=== PATIENT | male | born 1950 | race Caucasian/White ===

== ENCOUNTER 2023-04-01 11:58 | Inpatient (IN) | payer BC, OTHER ==
[2023-04-01 13:43] LABS: BASO % 0.5 % (0-2.0); EOS % 1.5 % (0-4.5); HEMATOCRIT 36.2 % (35.4-49); HEMOGLOBIN 12.4 GM/dL (11.7-16.9); LYMPH % 17.7 % (8-40); MCH 29.8 pg (25.7-33.7); MCHC 34.2 g/dl (32.0-35.9); MEAN CELL VOLUME 87.2 fl (80-96); MEAN PLT VOLUME 8.8 fl (7.5-11.1); MONO % 5.3 % (3.8-10.2); PLATELET COUNT 204 10^3/uL (134-434); RBC 4.14 M/mm3 (4.00-5.60); RDW 12.8 % (11.9-15.9); WHITE BLOOD COUNT 6.7 K/mm3 (4.0-10.0)
[2023-04-01 13:48] LABS: INR 1.1 (0.83-1.09); PROTHROMBIN TIME (PATIENT) 12.8 SEC (9.7-13.0)
[2023-04-01 13:51] LABS: ACTIVATED PTT 25.9 SECONDS (25.2-36.5)
[2023-04-01 14:04] LABS: POTASSIUM 4.1 mmol/L (3.5-5.1)
[2023-04-01 14:07] LABS: ALBUMIN 3.2 g/dl (3.4-5.0); BLOOD UREA NITROGEN 8.4 mg/dL (7-18); CALCIUM 9.1 mg/dL (8.5-10.1); MAGNESIUM 1.9 mg/dL (1.8-2.4)
[2023-04-01 14:10] LABS: CREATININE 0.8 mg/dL (0.55-1.3)
[2023-04-01 14:11] LABS: PHOSPHOROUS 3.2 mg/dL (2.5-4.9)
[2023-04-01 14:12] LABS: BILIRUBIN,TOTAL 0.3 mg/dL (0.2-1); TOT PROT 6.7 g/dl (6.4-8.2)
[2023-04-01 14:15] LABS: N-TERMINAL BNP 370.6 pg/ml (5-125)
[2023-04-01 15:14] LABS: PH,URINE 7.5 (5.0-8.0); URINE APPEARANCE CLEAR; URINE BILIRUBIN NEGATIVE (NEGATIVE); URINE COLOR YELLOW; URINE GLUCOSE (UA) NEGATIVE (NEGATIVE); URINE KETONE NEGATIVE (NEGATIVE); URINE LEUK ESTERASE NEGATIVE (NEGATIVE); URINE NITRITE NEGATIVE (NEGATIVE); URINE PROTEIN NEGATIVE (NEGATIVE)
[2023-04-01] MEDS: QUEtiapine FUMARATE 200 MG TABLET PO SCH (21:34)
[2023-04-01] MEDS: FLUoxetine HCL 20 MG CAPSULE PO SCH (21:34)
[2023-04-01] MEDS ORDERED: HALOPERIDOL 5 MG TABLET PO SCH (22:00)
[2023-04-01] MEDS: HALOPERIDOL 5 MG TABLET PO SCH (23:16)
[2023-04-02] MEDS: LEVOTHYROXINE 100 MCG, LEVOTHYROXINE 75 MCG PO SCH (07:20)
[2023-04-02 08:55] LABS: BASO % 0.3 % (0-2.0); EOS % 3.1 % (0-4.5); HEMATOCRIT 35.7 % (35.4-49); HEMOGLOBIN 12.2 GM/dL (11.7-16.9); LYMPH % 20.8 % (8-40); MCH 29.6 pg (25.7-33.7); MCHC 34.1 g/dl (32.0-35.9); MEAN CELL VOLUME 86.8 fl (80-96); MEAN PLT VOLUME 8.5 fl (7.5-11.1); MONO % 5.9 % (3.8-10.2); NEUT % 69.9 % (42.8-82.8); PLATELET COUNT 180 10^3/uL (134-434); RBC 4.11 M/mm3 (4.00-5.60); WHITE BLOOD COUNT 6.6 K/mm3 (4.0-10.0)
[2023-04-02 09:10] LABS: POTASSIUM 3.8 mmol/L (3.5-5.1)
[2023-04-02 09:14] LABS: CALCIUM 9.1 mg/dL (8.5-10.1)
[2023-04-02 09:15] LABS: BLOOD UREA NITROGEN 8.3 mg/dL (7-18)
[2023-04-02 09:18] LABS: CREATININE 0.6 mg/dL (0.55-1.3)
[2023-04-02] MEDS: HALOPERIDOL 5 MG TABLET PO SCH ×2 (09:28→22:49)
[2023-04-02] MEDS: ATENOLOL 50 MG TABLET (FP) PO SCH (09:29)
[2023-04-02] MEDS ORDERED: MIRTAZAPINE 15 MG TABLET (FP) PO SCH (10:00)
[2023-04-02] MEDS ORDERED: PATIENT'S OWN MEDICATION (NON-FORMULARY) (Levothyroxine Sodium [Levothyroxine] 175 MCG Cap PO SCH (10:00)
[2023-04-02] MEDS ORDERED: PATIENT'S OWN MEDICATION (NON-FORMULARY) (Mirabegron [Myrbetriq] 50 MG Tab.Er.24h) PO SCH (10:00)
[2023-04-02] MEDS: DEUTETRABENAZINE 12 MG PO SCH ×2 (17:21→18:01)
[2023-04-02] MEDS: FLUoxetine HCL 20 MG CAPSULE PO SCH (22:49)
[2023-04-02] MEDS: QUEtiapine FUMARATE 200 MG TABLET PO SCH (22:49)
[2023-04-03] MEDS: LEVOTHYROXINE 100 MCG, LEVOTHYROXINE 75 MCG PO SCH (06:47)
[2023-04-03] MEDS: HALOPERIDOL 5 MG TABLET PO SCH (09:36)
[2023-04-03] MEDS: ATENOLOL 50 MG TABLET (FP) PO SCH (09:36)
[2023-04-03] MEDS: ENOXAPARIN NA (PORCINE) 40 MG/0.4 ML DISP.SYRIN SQ SCH (09:36)
[2023-04-03 12:15] VITALS: BMI 31.4
[2023-04-03] MEDS: MIRTAZAPINE 15 MG TABLET (FP) PO SCH (22:04)
[2023-04-03] MEDS: QUEtiapine FUMARATE 200 MG TABLET PO SCH (22:04)
[2023-04-04] MEDS: LEVOTHYROXINE 100 MCG, LEVOTHYROXINE 75 MCG PO SCH (06:04)
[2023-04-04] MEDS: ENOXAPARIN NA (PORCINE) 40 MG/0.4 ML DISP.SYRIN SQ SCH (10:36)
[2023-04-04] MEDS: ATENOLOL 50 MG TABLET (FP) PO SCH (10:36)
[2023-04-04] MEDS ORDERED: TAMSULOSIN HCL 0.4 MG CAP PO ONE (14:36)
[2023-04-04] MEDS: ACETAMINOPHEN 325 MG TABLET (FP) PO PRN (16:54)
[2023-04-04] MEDS: QUEtiapine FUMARATE 200 MG TABLET PO SCH (22:22)
[2023-04-04] MEDS: MIRTAZAPINE 15 MG TABLET (FP) PO SCH (22:22)
[2023-04-05] MEDS: ACETAMINOPHEN 325 MG TABLET (FP) PO PRN (00:57)
[2023-04-05] MEDS: LEVOTHYROXINE 100 MCG, LEVOTHYROXINE 75 MCG PO SCH (06:10)
[2023-04-05] MEDS: TAMSULOSIN HCL 0.4 MG CAP PO SCH (08:43)
[2023-04-05] MEDS: ATENOLOL 50 MG TABLET (FP) PO SCH (09:47)
[2023-04-05] MEDS: ENOXAPARIN NA (PORCINE) 40 MG/0.4 ML DISP.SYRIN SQ SCH (09:47)
[2023-04-05] MEDS: MIRTAZAPINE 15 MG TABLET (FP) PO SCH (21:07)
[2023-04-05] MEDS: QUEtiapine FUMARATE 200 MG TABLET PO SCH (21:07)
[2023-04-06] MEDS: LEVOTHYROXINE 100 MCG, LEVOTHYROXINE 75 MCG PO SCH (06:35)
[2023-04-06] MEDS: TAMSULOSIN HCL 0.4 MG CAP PO SCH (08:01)
[2023-04-06] MEDS: ATENOLOL 50 MG TABLET (FP) PO SCH (10:57)
[2023-04-06] MEDS: ENOXAPARIN NA (PORCINE) 40 MG/0.4 ML DISP.SYRIN SQ SCH (10:57)
[2023-04-06] MEDS ORDERED: ALBUTEROL SO4 2.5/IPRATROPIUM 0.5 INH SOL 3 ML VIAL.NEB. NEB ONE ×2 (17:52→17:57)
[2023-04-06 20:11] LABS: BASO % 0.4 % (0-2.0); EOS % 1.3 % (0-4.5); HEMATOCRIT 37.5 % (35.4-49); HEMOGLOBIN 12.6 GM/dL (11.7-16.9); LYMPH % 17.9 % (8-40); MCH 29.5 pg (25.7-33.7); MCHC 33.7 g/dl (32.0-35.9); MEAN CELL VOLUME 87.3 fl (80-96); MEAN PLT VOLUME 8.7 fl (7.5-11.1); MONO % 7.1 % (3.8-10.2); NEUT % 73.3 % (42.8-82.8); PLATELET COUNT 208 10^3/uL (134-434); RBC 4.29 M/mm3 (4.00-5.60); RDW 12.8 % (11.9-15.9); WHITE BLOOD COUNT 7.6 K/mm3 (4.0-10.0)
[2023-04-06 20:16] LABS: POTASSIUM 3.3 mmol/L (3.5-5.1)
[2023-04-06 20:18] LABS: CALCIUM 8.7 mg/dL (8.5-10.1)
[2023-04-06 20:19] LABS: ALBUMIN 3.1 g/dl (3.4-5.0); BLOOD UREA NITROGEN 15.9 mg/dL (7-18); MAGNESIUM 1.9 mg/dL (1.8-2.4)
[2023-04-06 20:22] LABS: CREATININE 0.7 mg/dL (0.55-1.3); PHOSPHOROUS 2.9 mg/dL (2.5-4.9)
[2023-04-06 20:23] LABS: BILIRUBIN,TOTAL 0.4 mg/dL (0.2-1); TOT PROT 6.5 g/dl (6.4-8.2)
[2023-04-06] MEDS: ACETAMINOPHEN 325 MG TABLET (FP) PO PRN (22:03)
[2023-04-06] MEDS: QUEtiapine FUMARATE 200 MG TABLET PO SCH (22:04)
[2023-04-06] MEDS: MIRTAZAPINE 15 MG TABLET (FP) PO SCH (22:04)
[2023-04-07] MEDS: LEVOTHYROXINE 100 MCG, LEVOTHYROXINE 75 MCG PO SCH (06:16)
[2023-04-07] MEDS: ENOXAPARIN NA (PORCINE) 40 MG/0.4 ML DISP.SYRIN SQ SCH (09:59)
[2023-04-07] MEDS: POTASSIUM CHLORIDE ORAL LIQUID 20 MEQ/15 ML PO SCH (09:59)
[2023-04-07] MEDS: TAMSULOSIN HCL 0.4 MG CAP PO SCH ×2 (10:00→21:28)
[2023-04-07] MEDS: ATENOLOL 50 MG TABLET (FP) PO SCH (10:00)
[2023-04-07 10:07] LABS: BASO % 0.3 % (0-2.0); EOS % 0.6 % (0-4.5); HEMATOCRIT 37.8 % (35.4-49); HEMOGLOBIN 12.5 GM/dL (11.7-16.9); LYMPH % 9.5 % (8-40); MCH 29.4 pg (25.7-33.7); MCHC 33.1 g/dl (32.0-35.9); MEAN PLT VOLUME 9.1 fl (7.5-11.1); MONO % 5.7 % (3.8-10.2); NEUT % 83.9 % (42.8-82.8); PLATELET COUNT 198 10^3/uL (134-434); RBC 4.24 M/mm3 (4.00-5.60); RDW 12.9 % (11.9-15.9); WHITE BLOOD COUNT 11.1 K/mm3 (4.0-10.0)
[2023-04-07 10:40] LABS: POTASSIUM 3.5 mmol/L (3.5-5.1)
[2023-04-07 10:42] LABS: ALBUMIN 3.1 g/dl (3.4-5.0); BLOOD UREA NITROGEN 14.6 mg/dL (7-18); CALCIUM 8.8 mg/dL (8.5-10.1); MAGNESIUM 1.9 mg/dL (1.8-2.4)
[2023-04-07 10:46] LABS: CREATININE 0.6 mg/dL (0.55-1.3)
[2023-04-07 10:47] LABS: BILIRUBIN,TOTAL 0.4 mg/dL (0.2-1); TOT PROT 6.6 g/dl (6.4-8.2)
[2023-04-07] MEDS ORDERED: LEVOTHYROXINE NA 25 MCG TABLET (FP) PO ONE (11:23)
[2023-04-07] MEDS: QUEtiapine FUMARATE 200 MG TABLET PO SCH (21:28)
[2023-04-07] MEDS: MIRTAZAPINE 15 MG TABLET (FP) PO SCH (21:28)
[2023-04-08] MEDS: LEVOTHYROXINE NA 100 MCG TABLET (FP) PO SCH (07:29)
[2023-04-08 09:06] LABS: BASO % 0.1 % (0-2.0); EOS % 0.2 % (0-4.5); HEMATOCRIT 35.5 % (35.4-49); LYMPH % 6.8 % (8-40); MCH 29.6 pg (25.7-33.7); MCHC 33.9 g/dl (32.0-35.9); MEAN CELL VOLUME 87.4 fl (80-96); MEAN PLT VOLUME 8.7 fl (7.5-11.1); MONO % 4.8 % (3.8-10.2); NEUT % 88.1 % (42.8-82.8); PLATELET COUNT 204 10^3/uL (134-434); RBC 4.06 M/mm3 (4.00-5.60); WHITE BLOOD COUNT 12.6 K/mm3 (4.0-10.0)
[2023-04-08 09:15] LABS: POTASSIUM 3.2 mmol/L (3.5-5.1)
[2023-04-08 09:18] LABS: CALCIUM 9.1 mg/dL (8.5-10.1)
[2023-04-08 09:19] LABS: MAGNESIUM 2.1 mg/dL (1.8-2.4)
[2023-04-08 09:22] LABS: ALBUMIN 2.9 g/dl (3.4-5.0); BLOOD UREA NITROGEN 18.3 mg/dL (7-18); CREATININE 0.6 mg/dL (0.55-1.3)
[2023-04-08 09:23] LABS: BILIRUBIN,TOTAL 0.8 mg/dL (0.2-1)
[2023-04-08 09:24] LABS: TOT PROT 6.6 g/dl (6.4-8.2)
[2023-04-08] MEDS: ENOXAPARIN NA (PORCINE) 40 MG/0.4 ML DISP.SYRIN SQ SCH (09:33)
[2023-04-08] MEDS: ATENOLOL 50 MG TABLET (FP) PO SCH (09:34)
[2023-04-08] MEDS: POTASSIUM CHLORIDE ORAL LIQUID 20 MEQ/15 ML PO SCH (09:34)
[2023-04-08] MEDS: TAMSULOSIN HCL 0.4 MG CAP PO SCH ×2 (09:34→22:06)
[2023-04-08] MEDS: MIRTAZAPINE 15 MG TABLET (FP) PO SCH (22:06)
[2023-04-08] MEDS: QUEtiapine FUMARATE 200 MG TABLET PO SCH (22:06)
[2023-04-09] MEDS: LEVOTHYROXINE NA 100 MCG TABLET (FP) PO SCH (06:20)
[2023-04-09] MEDS: TAMSULOSIN HCL 0.4 MG CAP PO SCH ×2 (08:25→23:26)
[2023-04-09 09:29] LABS: BASO % 0.2 % (0-2.0); EOS % 0.1 % (0-4.5); HEMATOCRIT 34.8 % (35.4-49); HEMOGLOBIN 11.6 GM/dL (11.7-16.9); LYMPH % 6.2 % (8-40); MCH 30.1 pg (25.7-33.7); MCHC 33.3 g/dl (32.0-35.9); MEAN CELL VOLUME 90.3 fl (80-96); MEAN PLT VOLUME 9.1 fl (7.5-11.1); MONO % 5.3 % (3.8-10.2); NEUT % 88.2 % (42.8-82.8); PLATELET COUNT 191 10^3/uL (134-434); RBC 3.85 M/mm3 (4.00-5.60); RDW 12.6 % (11.9-15.9); WHITE BLOOD COUNT 12.4 K/mm3 (4.0-10.0)
[2023-04-09] MEDS: POTASSIUM CHLORIDE ORAL LIQUID 20 MEQ/15 ML PO SCH (09:40)
[2023-04-09] MEDS: ENOXAPARIN NA (PORCINE) 40 MG/0.4 ML DISP.SYRIN SQ SCH (09:40)
[2023-04-09] MEDS: ATENOLOL 50 MG TABLET (FP) PO SCH (09:40)
[2023-04-09 09:55] LABS: CALCIUM 9.3 mg/dL (8.5-10.1)
[2023-04-09 09:56] LABS: ALBUMIN 3.1 g/dl (3.4-5.0); BLOOD UREA NITROGEN 21.8 mg/dL (7-18); MAGNESIUM 2.2 mg/dL (1.8-2.4)
[2023-04-09 09:59] LABS: CREATININE 0.7 mg/dL (0.55-1.3)
[2023-04-09 10:01] LABS: BILIRUBIN,TOTAL 0.6 mg/dL (0.2-1); TOT PROT 6.6 g/dl (6.4-8.2)
[2023-04-09] MEDS ORDERED: POTASSIUM CHLORIDE ORAL LIQUID 20 MEQ/15 ML PO ONE (12:30)
[2023-04-09] MEDS ORDERED: SODIUM CHLORIDE 1,000 ML IV SCH (16:30)
[2023-04-09 17:56] LABS: POTASSIUM 3.9 mmol/L (3.5-5.1)
[2023-04-09 17:58] LABS: CALCIUM 9.3 mg/dL (8.5-10.1)
[2023-04-09 17:59] LABS: ALBUMIN 2.9 g/dl (3.4-5.0); BLOOD UREA NITROGEN 22.3 mg/dL (7-18)
[2023-04-09 18:02] LABS: CREATININE 0.7 mg/dL (0.55-1.3)
[2023-04-09 18:03] LABS: BILIRUBIN,TOTAL 0.4 mg/dL (0.2-1); TOT PROT 6.6 g/dl (6.4-8.2)
[2023-04-09] MEDS: MIRTAZAPINE 15 MG TABLET (FP) PO SCH (23:25)
[2023-04-09] MEDS: QUEtiapine FUMARATE 200 MG TABLET PO SCH (23:26)
[2023-04-10] MEDS: LEVOTHYROXINE NA 100 MCG TABLET (FP) PO SCH (06:20)
[2023-04-10 09:04] LABS: BASO % 0.3 % (0-2.0); EOS % 0.3 % (0-4.5); HEMATOCRIT 33.1 % (35.4-49); HEMOGLOBIN 10.8 GM/dL (11.7-16.9); LYMPH % 11.4 % (8-40); MCH 29.4 pg (25.7-33.7); MCHC 32.6 g/dl (32.0-35.9); MEAN PLT VOLUME 9.1 fl (7.5-11.1); MONO % 6.3 % (3.8-10.2); NEUT % 81.7 % (42.8-82.8); PLATELET COUNT 208 10^3/uL (134-434); RBC 3.68 M/mm3 (4.00-5.60); RDW 12.8 % (11.9-15.9); WHITE BLOOD COUNT 8.8 K/mm3 (4.0-10.0)
[2023-04-10] MEDS: POTASSIUM CHLORIDE ORAL LIQUID 20 MEQ/15 ML PO SCH (09:09)
[2023-04-10] MEDS: TAMSULOSIN HCL 0.4 MG CAP PO SCH ×2 (09:09→22:14)
[2023-04-10] MEDS: ATENOLOL 50 MG TABLET (FP) PO SCH (09:09)
[2023-04-10] MEDS: ENOXAPARIN NA (PORCINE) 40 MG/0.4 ML DISP.SYRIN SQ SCH (09:09)
[2023-04-10 09:17] LABS: ALBUMIN 2.7 g/dl (3.4-5.0); BLOOD UREA NITROGEN 21.5 mg/dL (7-18); CALCIUM 8.9 mg/dL (8.5-10.1); MAGNESIUM 2.1 mg/dL (1.8-2.4)
[2023-04-10 09:20] LABS: CREATININE 0.5 mg/dL (0.55-1.3)
[2023-04-10 09:21] LABS: BILIRUBIN,TOTAL 0.5 mg/dL (0.2-1)
[2023-04-10 09:22] LABS: TOT PROT 6.1 g/dl (6.4-8.2)
[2023-04-10] MEDS: KCL 10 MEQ IVPB 10 MEQ/100 ML INFUS.BAG IVPB SCH ×3 (10:35→12:49)
[2023-04-10] MEDS ORDERED: SODIUM CHLORIDE 0.9%/KCL 20 MEQ/1,000 ML INFUS.BAG IV SCH (11:45)
[2023-04-10] MEDS: MIRTAZAPINE 15 MG TABLET (FP) PO SCH (22:14)
[2023-04-10] MEDS: POLYETHYLENE GLYCOL (HEALTHYLAX) 3350 17 GM PACKET PO SCH (22:14)
[2023-04-10] MEDS: QUEtiapine FUMARATE 200 MG TABLET PO SCH (22:14)
[2023-04-11] MEDS: LEVOTHYROXINE NA 100 MCG TABLET (FP) PO SCH (06:51)
[2023-04-11 08:43] LABS: BASO % 0.2 % (0-2.0); EOS % 0.6 % (0-4.5); HEMATOCRIT 33.3 % (35.4-49); HEMOGLOBIN 11.1 GM/dL (11.7-16.9); LYMPH % 12.8 % (8-40); MCH 29.8 pg (25.7-33.7); MCHC 33.2 g/dl (32.0-35.9); MEAN CELL VOLUME 89.7 fl (80-96); MEAN PLT VOLUME 8.8 fl (7.5-11.1); MONO % 4.8 % (3.8-10.2); NEUT % 81.6 % (42.8-82.8); PLATELET COUNT 220 10^3/uL (134-434); RBC 3.72 M/mm3 (4.00-5.60); RDW 12.9 % (11.9-15.9); WHITE BLOOD COUNT 6.5 K/mm3 (4.0-10.0)
[2023-04-11 09:04] LABS: CALCIUM 9.2 mg/dL (8.5-10.1)
[2023-04-11 09:05] LABS: ALBUMIN 2.7 g/dl (3.4-5.0)
[2023-04-11 09:08] LABS: CREATININE 0.5 mg/dL (0.55-1.3)
[2023-04-11 09:09] LABS: BILIRUBIN,TOTAL 0.6 mg/dL (0.2-1)
[2023-04-11 09:10] LABS: TOT PROT 6.4 g/dl (6.4-8.2)
[2023-04-11] MEDS ORDERED: DEXTROSE 5%-NORMAL SALINE 1,000 ML IV SCH (09:15)
[2023-04-11] MEDS: TAMSULOSIN HCL 0.4 MG CAP PO SCH ×2 (10:26→21:55)
[2023-04-11] MEDS: KCL 10 MEQ IVPB 10 MEQ/100 ML INFUS.BAG IVPB SCH ×3 (10:26→13:05)
[2023-04-11] MEDS: ENOXAPARIN NA (PORCINE) 40 MG/0.4 ML DISP.SYRIN SQ SCH (10:26)
[2023-04-11] MEDS: ATENOLOL 50 MG TABLET (FP) PO SCH (10:27)
[2023-04-11] MEDS: POLYETHYLENE GLYCOL (HEALTHYLAX) 3350 17 GM PACKET PO SCH ×2 (10:27→21:57)
[2023-04-11] MEDS: DEXTROSE 5%-WATER - 1,000 ML IV SCH (10:27)
[2023-04-11 11:39] LABS: EPI CELLS 0 /uL (0-25.1); HYALINE CASTS 0 /uL (0-3.1); URINE APPEARANCE CLOUDY; URINE BACTERIA >9,000 /uL (0-1359); URINE BILIRUBIN NEGATIVE (NEGATIVE); URINE COLOR YELLOW; URINE GLUCOSE (UA) NEGATIVE (NEGATIVE); URINE KETONE 1+ (NEGATIVE); URINE LEUK ESTERASE TRACE (NEGATIVE); URINE NITRITE NEGATIVE (NEGATIVE); URINE PROTEIN 1+ (NEGATIVE); URINE WBC 365 /uL (0-25.8)
[2023-04-11 12:13] LABS: URINE RBC 57 /uL (0-23.9); YEAST PRESENT (NEGATIVE)
[2023-04-11] MEDS: CEFTRIAXONE 1 GM in DEXTROSE 5%-WATER - 50 ML IVPB SCH (13:36)
[2023-04-11 16:03] LABS: POTASSIUM 3.1 mmol/L (3.5-5.1)
[2023-04-11 16:05] LABS: CALCIUM 8.8 mg/dL (8.5-10.1)
[2023-04-11 16:06] LABS: ALBUMIN 2.6 g/dl (3.4-5.0); BLOOD UREA NITROGEN 19.1 mg/dL (7-18)
[2023-04-11 16:09] LABS: CREATININE 0.6 mg/dL (0.55-1.3)
[2023-04-11 16:10] LABS: BILIRUBIN,TOTAL 0.3 mg/dL (0.2-1); TOT PROT 6.3 g/dl (6.4-8.2)
[2023-04-11] MEDS: QUEtiapine FUMARATE 200 MG TABLET PO SCH (21:55)
[2023-04-11] MEDS: MIRTAZAPINE 15 MG TABLET (FP) PO SCH (21:55)
[2023-04-11] MEDS: POTASSIUM CHLORIDE TABS 20 MEQ TABLET.ER (FP) PO SCH (21:57)
[2023-04-11] MEDS ORDERED: POTASSIUM CHLORIDE TABS 20 MEQ TABLET.ER (FP) PO SCH (22:00)
[2023-04-12] MEDS: DEXTROSE 5%-WATER - 1,000 ML IV SCH ×2 (01:56→16:53)
[2023-04-12] MEDS: LEVOTHYROXINE NA 100 MCG TABLET (FP) PO SCH (07:28)
[2023-04-12 08:35] LABS: BASO % 0.3 % (0-2.0); EOS % 1.4 % (0-4.5); HEMATOCRIT 33.6 % (35.4-49); HEMOGLOBIN 11.2 GM/dL (11.7-16.9); LYMPH % 13.9 % (8-40); MCH 29.6 pg (25.7-33.7); MCHC 33.4 g/dl (32.0-35.9); MEAN CELL VOLUME 88.9 fl (80-96); MEAN PLT VOLUME 8.8 fl (7.5-11.1); MONO % 6.9 % (3.8-10.2); NEUT % 77.5 % (42.8-82.8); PLATELET COUNT 210 10^3/uL (134-434); RBC 3.78 M/mm3 (4.00-5.60); RDW 12.6 % (11.9-15.9); WHITE BLOOD COUNT 7.5 K/mm3 (4.0-10.0)
[2023-04-12] MEDS: TAMSULOSIN HCL 0.4 MG CAP PO SCH ×2 (08:49→21:48)
[2023-04-12 09:16] LABS: POTASSIUM 3.5 mmol/L (3.5-5.1)
[2023-04-12 09:21] LABS: ALBUMIN 2.6 g/dl (3.4-5.0); BLOOD UREA NITROGEN 13.4 mg/dL (7-18)
[2023-04-12 09:22] LABS: CALCIUM 8.8 mg/dL (8.5-10.1); MAGNESIUM 1.8 mg/dL (1.8-2.4)
[2023-04-12 09:24] LABS: CREATININE 0.6 mg/dL (0.55-1.3)
[2023-04-12 09:26] LABS: BILIRUBIN,TOTAL 0.5 mg/dL (0.2-1); TOT PROT 6.1 g/dl (6.4-8.2)
[2023-04-12] MEDS: POTASSIUM CHLORIDE TABS 20 MEQ TABLET.ER (FP) PO SCH ×2 (10:26→21:48)
[2023-04-12] MEDS: CEFTRIAXONE 1 GM in DEXTROSE 5%-WATER - 50 ML IVPB SCH (10:26)
[2023-04-12] MEDS: MULTIVITAMINS (DAILY MVI) TABLET (FP) PO SCH (10:26)
[2023-04-12] MEDS: ATENOLOL 50 MG TABLET (FP) PO SCH (10:26)
[2023-04-12] MEDS: ENOXAPARIN NA (PORCINE) 40 MG/0.4 ML DISP.SYRIN SQ SCH (10:26)
[2023-04-12] MEDS: POLYETHYLENE GLYCOL (HEALTHYLAX) 3350 17 GM PACKET PO SCH ×2 (10:44→21:47)
[2023-04-12] MEDS: SODIUM CHLORIDE 1,000 ML IV SCH (19:09)
[2023-04-12] MEDS: MIRTAZAPINE 15 MG TABLET (FP) PO SCH (21:48)
[2023-04-12] MEDS: QUEtiapine FUMARATE 200 MG TABLET PO SCH (21:48)
[2023-04-13] MEDS: LEVOTHYROXINE NA 100 MCG TABLET (FP) PO SCH (06:10)
[2023-04-13 08:48] LABS: BASO % 0.3 % (0-2.0); EOS % 1.8 % (0-4.5); HEMOGLOBIN 11.5 GM/dL (11.7-16.9); LYMPH % 19.5 % (8-40); MCH 29.1 pg (25.7-33.7); MCHC 32.7 g/dl (32.0-35.9); MEAN CELL VOLUME 88.8 fl (80-96); MEAN PLT VOLUME 8.6 fl (7.5-11.1); NEUT % 73.4 % (42.8-82.8); PLATELET COUNT 221 10^3/uL (134-434); RBC 3.94 M/mm3 (4.00-5.60); RDW 12.6 % (11.9-15.9); WHITE BLOOD COUNT 6.8 K/mm3 (4.0-10.0)
[2023-04-13 09:21] LABS: ALBUMIN 2.6 g/dl (3.4-5.0); BLOOD UREA NITROGEN 12.6 mg/dL (7-18); CALCIUM 8.8 mg/dL (8.5-10.1); MAGNESIUM 1.9 mg/dL (1.8-2.4)
[2023-04-13 09:24] LABS: CREATININE 0.5 mg/dL (0.55-1.3)
[2023-04-13 09:26] LABS: BILIRUBIN,TOTAL 0.5 mg/dL (0.2-1); TOT PROT 6.1 g/dl (6.4-8.2)
[2023-04-13] MEDS: POTASSIUM CHLORIDE TABS 20 MEQ TABLET.ER (FP) PO SCH ×2 (09:55→21:04)
[2023-04-13] MEDS: ATENOLOL 50 MG TABLET (FP) PO SCH (09:55)
[2023-04-13] MEDS: CEFTRIAXONE 1 GM in DEXTROSE 5%-WATER - 50 ML IVPB SCH (09:55)
[2023-04-13] MEDS: ENOXAPARIN NA (PORCINE) 40 MG/0.4 ML DISP.SYRIN SQ SCH (09:55)
[2023-04-13] MEDS: POLYETHYLENE GLYCOL (HEALTHYLAX) 3350 17 GM PACKET PO SCH ×2 (09:55→21:01)
[2023-04-13] MEDS: TAMSULOSIN HCL 0.4 MG CAP PO SCH ×2 (09:55→21:05)
[2023-04-13] MEDS: SODIUM CHLORIDE 1,000 ML IV SCH (09:57)
[2023-04-13] MEDS: MULTIVITAMINS (DAILY MVI) TABLET (FP) PO SCH (10:08)
[2023-04-13] MEDS: CEPHALEXIN MONOHYDRATE 500 MG CAPSULE (UD) PO SCH (21:05)
[2023-04-13] MEDS: MIRTAZAPINE 15 MG TABLET (FP) PO SCH (21:05)
[2023-04-13] MEDS: QUEtiapine FUMARATE 200 MG TABLET PO SCH (21:05)
[2023-04-13 22:33] VITALS: RESP 18
[2023-04-14] MEDS: LEVOTHYROXINE NA 100 MCG TABLET (FP) PO SCH (06:04)
[2023-04-14 09:08] LABS: BASO % 0.2 % (0-2.0); EOS % 2.2 % (0-4.5); HEMATOCRIT 34.9 % (35.4-49); HEMOGLOBIN 11.9 GM/dL (11.7-16.9); LYMPH % 21.3 % (8-40); MCH 29.9 pg (25.7-33.7); MCHC 34.2 g/dl (32.0-35.9); MEAN CELL VOLUME 87.3 fl (80-96); MEAN PLT VOLUME 8.4 fl (7.5-11.1); MONO % 5.8 % (3.8-10.2); NEUT % 70.5 % (42.8-82.8); PLATELET COUNT 229 10^3/uL (134-434); RDW 12.6 % (11.9-15.9); WHITE BLOOD COUNT 6.7 K/mm3 (4.0-10.0)
[2023-04-14 09:25] LABS: ALBUMIN 2.6 g/dl (3.4-5.0); BLOOD UREA NITROGEN 10.2 mg/dL (7-18); MAGNESIUM 1.8 mg/dL (1.8-2.4)
[2023-04-14 09:28] LABS: CREATININE 0.4 mg/dL (0.55-1.3)
[2023-04-14 09:30] LABS: BILIRUBIN,TOTAL 0.3 mg/dL (0.2-1); TOT PROT 6.1 g/dl (6.4-8.2)
[2023-04-14] MEDS: POLYETHYLENE GLYCOL (HEALTHYLAX) 3350 17 GM PACKET PO SCH ×2 (10:04→10:23)
[2023-04-14] MEDS: CEPHALEXIN MONOHYDRATE 500 MG CAPSULE (UD) PO SCH (10:04)
[2023-04-14] MEDS: MULTIVITAMINS (DAILY MVI) TABLET (FP) PO SCH (10:04)
[2023-04-14] MEDS: ATENOLOL 50 MG TABLET (FP) PO SCH (10:04)
[2023-04-14] MEDS: TAMSULOSIN HCL 0.4 MG CAP PO SCH (10:04)
[2023-04-14] MEDS: ENOXAPARIN NA (PORCINE) 40 MG/0.4 ML DISP.SYRIN SQ SCH (10:05)
[2023-04-14] MEDS: POTASSIUM CHLORIDE TABS 20 MEQ TABLET.ER (FP) PO SCH (10:05)
[2023-04-14 15:40] VITALS: BP 125/69; PULSE 65; TEMP 98.2
== END 2023-04-14 17:27 | DRG 884 ==
LOC: JER 11:58 → JERBED 16:10 → OBSVTOIN 17:46 → J8W 19:25
PROVIDERS: ADMIT Internal Medicine; ATTEND Nurse Practitioner Family
DX: F03.918 Unspecified dementia, unspecified severity, with other behavioral disturbance (principal); F19.951 Other psychoactive substance use, unspecified with psychoactive substance-induced psychotic disorder with hallucinations; N39.0 Urinary tract infection, site not specified; I25.10 Atherosclerotic heart disease of native coronary artery without angina pectoris; F20.9 Schizophrenia, unspecified; K59.81 Ogilvie syndrome; R13.10 Dysphagia, unspecified; E03.9 Hypothyroidism, unspecified; B95.4 Other streptococcus as the cause of diseases classified elsewhere; R19.7 Diarrhea, unspecified; R26.89 Other abnormalities of gait and mobility; R62.7 Adult failure to thrive; E66.9 Obesity, unspecified; E87.6 Hypokalemia; Z68.31 Body mass index [BMI] 31.0-31.9, adult; Z85.850 Personal history of malignant neoplasm of thyroid
CPT/HCPCS: 0241U-QW; 36415; 70450-TC; 71045-TC-FY; 74019-TC-FY; 74021-TC-FY; 74176-TC; 74230-TC-FY; 80048; 80053; 81003; 82962; 83735; 83880; 84100; 84436; 84443; 84480; 84484; 85025; 85610; 85730; 86850; 86900; 86901; 87045; 87046; 87086; 87324; 87449; 87635; 92611-GN; 93005; 93010; 94640; 97116-GP; 97161-GP; 99285-25; G0378